=== PATIENT | female | born 1990 | race Caucasian/White ===

== ENCOUNTER 2016-04-23 18:33 | Emergency (ER) | payer SELFPAY ==
[2016-04-23 19:17] LABS: SPECIFIC GRAVITY 1.015 (1.001-1.030); URINE BILIRUBIN NEGATIVE (NEGATIVE); URINE BLOOD 4+ (NEGATIVE); URINE GLUCOSE (UA) NEGATIVE (NEGATIVE); URINE LEUKOCYTE ESTERASE NEGATIVE (NEGATIVE); URINE NITRITE NEGATIVE (NEGATIVE); URINE PROTEIN 1+ (NEGATIVE); URINE UROBILINOGEN NORMAL (0-1 mg/dl)
[2016-04-23 19:19] LABS: HCG,QUALITATIVE URINE POSITIVE; URINE APPEARANCE TURBID; URINE COLOR YELLOW
[2016-04-23 19:23] LABS: URINE EPITHELIAL CELLS 20-30 /hpf; URINE RBC >100 /hpf
[2016-04-23 19:24] LABS: URINE BACTERIA 3+
[2016-04-23 19:51] LABS: ABSOLUTE NEUTROPHIL COUNT 8.4 K/mm3 (1.8-7.7); BASO % 0.3 % (0.2-1.0); EOS # 0.1 (0.0-0.5); EOS % 0.7 % (0.9-2.9); HEMATOCRIT 39.1 % (37.0-47.0); HEMOGLOBIN 13.1 gm/l (12.0-16.0); IMM NEUT # 0.1 K/mm3 (0-0.2); IMM NEUT% 0.4 % (0-1); LYMPH # 3.7 (1.0-4.8); LYMPH % 27.3 % (15-45); MEAN CELL VOLUME 85.6 fl (81.0-99.0); MEAN CORPUSCULAR HEMOGLOBIN 28.7 pg (27.0-31.0); MEAN CORPUSCULAR HGB CONC 33.5 g/dl (33.0-37.0); MEAN PLATELET VOLUME 10.2 fl (7.4-10.4); MONO # 1.1 (0.0-0.8); MONO % 8.5 % (4-12); NEUT % 62.8 % (43-75); PLATELET COUNT 355 K/mm3 (130-400); RED CELL DISTRIBUTION WIDTH 12.4 % (11.5-14.5)
[2016-04-23 20:05] LABS: ALB/GLOB RATIO 1.1 (>1.0); ALBUMIN 3.9 gm/dL (3.5-5.7)
--- NOTE | 2016-04-23 20:17 | US ---
Name: CALIN GARIBAY Exam: Obstetrical Ultrasound Comparison: None Clinical history: Intrauterine gestation at approximately 10 weeks 0 days by dates. Vaginal bleeding. Findings: Transabdominal imaging of the pelvis was performed. Visualized bladder is normal. The uterus is normal size. There is a single living intrauterine gestation at 10 weeks 2 days by crown-rump length yielding an estimated date of delivery of 11/17/2016. Heart rate is 176 bpm. Somatic motion is identified. Yolk sac is present. Gestational fluid volume is grossly normal. There is a small amount of fluid within the endocervical canal. The placenta is soft be forming posteriorly. There is a 2.6 x 2.3 x 1.0 cm perigestational hemorrhage. Right ovary measures 2.3 x 2.3 x 2.1 cm and left ovary measures 4.1 x 3.5 x 2.5 cm. There is blood flow in both ovaries. There is a 1.8 x 1.6 x 1.3 cm physiologic left ovarian cyst. A 1.7 x 1.3 x 0.9 cm anterior leiomyoma is suspected. There is no significant free fluid. Impression: 1. Single living intrauterine gestation at 10 weeks 2 days by crown-rump length yielding an estimated date of delivery of 11/17/2016 2. 2.6 x 2.3 x 1.0 cm perigestational hemorrhage 3. No significant free fluid Note: The above report was uploaded to [facility]'s electronic medical records system at 2014 hours.
[2016-04-25 14:47] LABS: CHLAMYDIA BD Negative (Negative); N.GONORRHOEAE BD Negative (Negative); SOURCE Urine (())
== END 2016-04-23 20:49 | disposition home or self-care (01) ==
LOC: ED 18:33
DX: O20.0 Threatened abortion (principal); Z3A.10 10 weeks gestation of pregnancy